=== PATIENT | female | born 1940 | race Caucasian/White ===

== ENCOUNTER → 2017-09-04 | Outpatient (CLI) | payer MEDICARE | LOC: MC.RAD 10:00 | DX: Z12.31 Encounter for screening mammogram for malignant neoplasm of breast (principal) ==

== ENCOUNTER 2018-05-01 11:32 | Emergency (ER) | payer MEDICARE ==
[~2018-05-01] VITALS: Ht 152.4 cm; Wt 63.6 kg
[2018-05-01 11:37] VITALS: TEMP 98.1
[2018-05-01] MEDS ORDERED: CATAPRES 0.1MG0.1 MG PO (12:00)
[2018-05-01] MEDS ORDERED: LIPITOR 80MG80 MG PO (12:01)
[2018-05-01] MEDS ORDERED: HYZAAR 12.5 MG-1 TAB PO (12:01)
[2018-05-01] MEDS ORDERED: ASPIRIN 32325 MG/TAB PO (12:02)
[2018-05-01] MEDS ORDERED: CALCIUM CARBON650 M2 (12:03)
[2018-05-01] MEDS ORDERED: MOBIC 7.5MG7.5 MG PO (12:03)
[2018-05-01 12:08] LABS: BASO % 0.5 % (0.0-2.0); EOS # 0.2 (0.0-0.7); EOS % 1.9 % (0-4.0); GRAN # 5.2 (1.4-6.5); GRAN % 65.3 % (42.2-75.2); HEMATOCRIT 43.1 % (37.0-47.0); HEMOGLOBIN 15.3 g/dl (12.5-16.0); LYMPH # 1.7 (1.2-3.4); LYMPH % 21.3 % (20.0-51.0); MEAN CELL VOLUME 88 fl (80.0-100.0); MEAN CORPUSCULAR HEMOGLOBIN 31 pg (27.0-31.0); MEAN CORPUSCULAR HGB CONC 36 g/dl (33.0-37.0); MEAN PLATELET VOLUME 11.2 fl (7.4-10.4); MONO # 0.8 (0.1-0.6); MONO % 10.5 % (1.7-9.3); PLATELET COUNT 275 K/mm3 (130-400); RED BLOOD COUNT 4.88 M/mm3 (4.10-5.30); REDCELL DISTRIBUTION WIDTH-CV 12.6 % (11.5-14.5)
[2018-05-01 12:16] LABS: ALANINE AMINOTRANSFERASE 25 U/L (9-52); ALBUMIN 4.2 gm/dL (3.5-5.0); ALKALINE PHOSPHATASE 107 U/L (50-136); ANION GAP 12 mmol/L (7-16); AST,SGOT 35 U/L (15-37); BILIRUBIN,TOTAL 0.7 mg/dL (0.0-1.0); BLOOD UREA NITROGEN 20 mg/dL (7-17); C-REACTIVE PROTEIN 3.5 mg/dL (0.0-0.9); CALCIUM 9.4 mg/dL (8.4-10.2); CARBON DIOXIDE 27 mmol/L (22-30); CHLORIDE 95 mmol/L (98-107); CREATININE, serum 1.34 mg/dL (0.52-1.25); GLUCOSE 118 mg/dL (74-106); LIPASE 120 U/L (23-300); POTASSIUM 3.6 mmol/L (3.4-5.0); SODIUM 134 mmol/L (137-145); TOTAL PROTEIN 7.4 gm/dL (6.4-8.2)
[2018-05-01 12:20] LABS: COLLECTION METHOD CLEAN CATCH
[2018-05-01 12:24] LABS: TROPONIN-I < 0.012 ng/mL (0.000-0.034)
[2018-05-01 12:32] LABS: PH 5 (5-8); SQUAMOUS EPITHELIAL 0-2 /hpf; URINE APPEARANCE Clear; URINE BACTERIA None Seen /hpf; URINE BILIRUBIN Negative (NEGATIVE); URINE BLOOD Negative (NEGATIVE); URINE COLOR Straw; URINE GLUCOSE Negative (NEGATIVE); URINE KETONE Negative (NEGATIVE); URINE LEUKOCYTE ESTERASE 1+ (NEGATIVE); URINE NITRATE Negative (NEGATIVE); URINE PROTEIN(semi-quant) Negative (NEGATIVE); URINE RBC 0-2 /hpf; URINE UROBILINOGEN Negative (NEGATIVE)
[2018-05-01] MEDS ORDERED: PRILOSEC 20MG20 MG PO (13:13)
[2018-05-01 13:26] VITALS: BP 128/62; PULSE 62
== END 2018-05-01 13:28 | disposition home or self-care (01) ==
LOC: COL.ER 11:32
PROVIDERS: Family Medicine
DX: K29.70 Gastritis, unspecified, without bleeding (principal); I10 Essential (primary) hypertension; E78.5 Hyperlipidemia, unspecified; Z79.82 Long term (current) use of aspirin
CPT/HCPCS: C9113; J2405; J7030

== ENCOUNTER 2018-05-27 12:25 | Day surgery (SDC) | payer MEDICARE ==
[~2018-05-27] VITALS: Ht 152.4 cm; Wt 67.0 kg
[~2018-05-27 12:25] MED LIST: ASPIRIN 32325 MG/TAB PO; CALCIUM CARBON650 M2; CATAPRES 0.1MG0.1 MG PO; HYZAAR 12.5 MG-1 TAB PO; LIPITOR 80MG80 MG PO; MOBIC 7.5MG7.5 MG PO; PRILOSEC 20MG20 MG PO
[2018-05-27 13:06] VITALS: BP 172/62; PULSE 70; TEMP 97
[2018-05-27 14:15] VITALS: BP 125/56; PULSE 70; TEMP 98.5
[2018-05-27 14:30] VITALS: BP 126/59; PULSE 72
[2018-05-27 14:45] VITALS: BP 135/66; PULSE 67
[2018-05-27 15:00] VITALS: BP 133/55; PULSE 63
== END 2018-05-27 15:20 | disposition home or self-care (01) ==
LOC: SDCO 12:25
DX: K29.30 Chronic superficial gastritis without bleeding (principal); K29.80 Duodenitis without bleeding; E78.00 Pure hypercholesterolemia, unspecified; Z86.010 Personal history of colon polyps; Z79.82 Long term (current) use of aspirin; Z88.1 Allergy status to other antibiotic agents
CPT/HCPCS: J2250; J3010; J7030

== ENCOUNTER 2018-10-01 17:03 | Observation (INO) | payer MEDICARE ==
[~2018-10-01] VITALS: Ht 152.4 cm; Wt 72.5 kg
[2018-10-01 17:45] LABS: COLLECTION METHOD CLEAN CATCH
[2018-10-01 17:51] LABS: HEMATOCRIT 39.8 % (37.0-47.0); HEMOGLOBIN 13.6 g/dl (12.5-16.0); MEAN CELL VOLUME 91 fl (80.0-100.0); MEAN CORPUSCULAR HEMOGLOBIN 31 pg (27.0-31.0); MEAN CORPUSCULAR HGB CONC 34 g/dl (33.0-37.0); MEAN PLATELET VOLUME 11.2 fl (7.4-10.4); PLATELET COUNT 170 K/mm3 (130-400); RED BLOOD COUNT 4.39 M/mm3 (4.10-5.30)
[2018-10-01 18:08] LABS: MUCOUS Present /lpf; PH 5 (5-8); SQUAMOUS EPITHELIAL 0-2 /hpf; URINE APPEARANCE Hazy; URINE BACTERIA None Seen /hpf; URINE BILIRUBIN Negative (NEGATIVE); URINE BLOOD Negative (NEGATIVE); URINE COLOR Yellow; URINE GLUCOSE Negative (NEGATIVE); URINE KETONE Negative (NEGATIVE); URINE LEUKOCYTE ESTERASE 1+ (NEGATIVE); URINE NITRATE Negative (NEGATIVE); URINE PROTEIN(semi-quant) Negative (NEGATIVE); URINE RBC 0-2 /hpf; URINE UROBILINOGEN Negative (NEGATIVE)
[2018-10-01 18:13] LABS: ALBUMIN 3.9 gm/dL (3.5-5.0); BILIRUBIN,TOTAL 0.9 mg/dL (0.0-1.0); CALCIUM 8.8 mg/dL (8.4-10.2); CREATININE, serum 0.69 mg/dL (0.52-1.25); POTASSIUM 3.4 mmol/L (3.4-5.0); TOTAL PROTEIN 6.8 gm/dL (6.4-8.2)
[2018-10-01 18:17] LABS: PROTHROMBIN TIME 11.9 SECONDS (9.7-12.8)
[2018-10-01 20:52] VITALS: BP 123/37; PULSE 85; TEMP 99.3
[2018-10-01 21:39] LABS: BAND 22 % (0-10); LYMPHOCYTE 3 % (20.0-51.0); NEUTROPHILS 73 % (42.0-75.2); PLATELET ESTIMATE NORMAL (NORMAL)
[2018-10-01 22:05] VITALS: BP 115/34
[2018-10-02 00:58] VITALS: BP 92/30; PULSE 74; TEMP 98.6
[2018-10-02 04:08] VITALS: BP 140/56; PULSE 87; TEMP 99
[2018-10-02 06:01] LABS: BASO % 0.3 % (0.0-2.0); EOS % 0.3 % (0-4.0); GRAN # 5.3 (1.4-6.5); GRAN % 88.8 % (42.2-75.2); LYMPH # 0.4 (1.2-3.4); LYMPH % 6.6 % (20.0-51.0); MEAN CELL VOLUME 92 fl (80.0-100.0); MEAN CORPUSCULAR HEMOGLOBIN 31 pg (27.0-31.0); MEAN CORPUSCULAR HGB CONC 34 g/dl (33.0-37.0); MEAN PLATELET VOLUME 11.5 fl (7.4-10.4); MONO # 0.2 (0.1-0.6); MONO % 3.7 % (1.7-9.3); PLATELET COUNT 145 K/mm3 (130-400); RED BLOOD COUNT 3.85 M/mm3 (4.10-5.30); REDCELL DISTRIBUTION WIDTH-CV 13.3 % (11.5-14.5)
[2018-10-02 06:05] LABS: HEMATOCRIT 35.3 % (37.0-47.0)
[2018-10-02 06:24] LABS: ALBUMIN 3.1 gm/dL (3.5-5.0); BILIRUBIN,TOTAL 0.8 mg/dL (0.0-1.0); CALCIUM 7.8 mg/dL (8.4-10.2); CREATININE, serum 0.71 mg/dL (0.52-1.25); POTASSIUM 3.3 mmol/L (3.4-5.0); TOTAL PROTEIN 5.7 gm/dL (6.4-8.2)
[2018-10-02 08:45] VITALS: BP 138/49; PULSE 88; TEMP 98.8
[2018-10-02 12:01] VITALS: BP 120/41; PULSE 80; TEMP 98.9
[2018-10-02 16:13] VITALS: BP 127/35; PULSE 77; TEMP 98.4
[2018-10-02 20:50] VITALS: BP 143/52; PULSE 87; TEMP 99.1
[2018-10-03 00:32] VITALS: BP 131/47; PULSE 92; TEMP 98.6
[2018-10-03 04:05] VITALS: BP 126/33; PULSE 82; TEMP 98.1
[2018-10-03 06:09] LABS: BASO % 0.7 % (0.0-2.0); EOS # 0.1 (0.0-0.7); EOS % 1.4 % (0-4.0); GRAN # 2.9 (1.4-6.5); GRAN % 67.5 % (42.2-75.2); HEMOGLOBIN 11.1 g/dl (12.5-16.0); LYMPH # 0.9 (1.2-3.4); LYMPH % 21.3 % (20.0-51.0); MEAN CELL VOLUME 93 fl (80.0-100.0); MEAN CORPUSCULAR HEMOGLOBIN 31 pg (27.0-31.0); MEAN CORPUSCULAR HGB CONC 33 g/dl (33.0-37.0); MEAN PLATELET VOLUME 11.7 fl (7.4-10.4); MONO # 0.4 (0.1-0.6); MONO % 8.4 % (1.7-9.3); PLATELET COUNT 141 K/mm3 (130-400); REDCELL DISTRIBUTION WIDTH-CV 13.5 % (11.5-14.5)
[2018-10-03 06:14] LABS: HEMATOCRIT 33.3 % (37.0-47.0)
[2018-10-03 06:29] LABS: CALCIUM 7.6 mg/dL (8.4-10.2); CREATININE, serum 0.66 mg/dL (0.52-1.25); POTASSIUM 3.4 mmol/L (3.4-5.0)
[2018-10-03 07:46] VITALS: BP 155/54; PULSE 77; TEMP 98
[2018-10-03] MEDS ORDERED: OMNICEF 300MG300 MG PO (10:01)
== END 2018-10-03 11:37 | disposition home or self-care (01) ==
LOC: COL.ER 17:03 → MEDICAL 19:09
PROVIDERS: Emergency Medicine; Nurse Practitioner Family
DX: N39.0 Urinary tract infection, site not specified (principal); I10 Essential (primary) hypertension; E78.5 Hyperlipidemia, unspecified; F03.90 Unspecified dementia, unspecified severity, without behavioral disturbance, psychotic disturbance, mood disturbance, and anxiety; A41.9 Sepsis, unspecified organism; B37.9 Candidiasis, unspecified; Z87.891 Personal history of nicotine dependence; Z79.82 Long term (current) use of aspirin; Z86.73 Personal history of transient ischemic attack (TIA), and cerebral infarction without residual deficits; Z83.3 Family history of diabetes mellitus; Z82.49 Family history of ischemic heart disease and other diseases of the circulatory system
CPT/HCPCS: 99222-AI; 99239; A4216; G0378; G8978-GP; G8979-GP; G8987-GO; G8989-GO; J0696; J1650; J3475; J7030